=== PATIENT | male | born 1970 | race Caucasian/White ===

== ENCOUNTER 2020-08-13 14:35 | Emergency (ER) | payer BC, SELFPAY ==
--- NOTE | ~2020-08-13 | XR_ITS ---
EXAMINATION:XR_[id number]_CR DATE: 08/13/2020 16:47 INDICATION: Neck pain TECHNIQUE: AP, lateral, and odontoid views of the cervical spine are provided. COMPARISON: None FINDINGS: Alignment is normal. There is reversal of the normal cervical lordosis. The odontoid is int act. No fracture is identified. The vertebral body heights are maintained. There is moderate loss of intervertebral disc space height at C5-6 and C6-7. There is mild facet and uncovertebral joint osteoa rthritis at these levels. Prevertebral soft tissues are normal. IMPRESSION: 1. Mild to moderate cervical spondylosis without acute findings. Reviewed, dictated and finalized at location A. 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
[2020-08-13 15:35] VITALS: BP 163/101; PULSE 83; RESP 17; TEMP 36.6; O2SAT 98
[2020-08-13] MEDS: KETOROLAC 30 MG/ML VIAL (*BKC) IM (17:25)
--- NOTE | 2020-08-13 17:34 | ED.GENADULT ---
HPI - General Adult General Chief complaint: Extremity Injury, Upper Stated complaint: pain in arm,and back Source: patient Mode of arrival: ambulatory Limitations: no limitations History of Present Illness HPI narrative: Hugo is a previously healthy 50M that presented to the ED with pain shooting from his upper medial right shoulder blade to his finger tips. It is worse with activity and better with rest. He also reports numbness in his finger tips and chronic pain in his neck. No weakness. No neck or upper extremity trauma. Related Data Allergies Allergy/AdvReac Type Severity Reaction Status Date / Time No Known Allergies Allergy Verified 08/13/20 15:55 Review of Systems Constitutional: Constitutional: Reports no additional constitutional complaints Eyes: Eyes: Reports no additional eye complaints ENT: Reports system reviewed and no additional complaints, except as documented Cardiovascular: Cardiovascular: Reports no additional cardiovascular complaints Respiratory: Respiratory: Reports no additional respiratory complaints Gastrointestinal: Gastrointestinal: Reports no additional gastrointestinal complaints Genitourinary: Genitourinary: Reports no additional male genitourinary complaints Musculoskeletal: Musculoskeletal: Reports as per HPI Integumentary/Breasts: Skin/Breast: Reports system reviewed and no additional complaints, except as docu Neurologic: Reports system reviewed and no additional complaints, except as documented Psychiatric: Psychiatric: Reports no additional psychiatric complaints Exam Const: General: no acute distress and alert Orientation/consciousness: patient oriented x3 Limitations: No altered mental status HENMT: Head: normal to inspection Eyes: Conjunctivae: conjunctivae normal Pupils: Equal, round and reactive pupils present Neck: Neck: normal visual inspection Chest: Chest palpation & inspection: normal inspection of the chest Resp: Effort & Inspection: normal respiratory effort Auscultation: clear to auscultation bilaterally Cardio: Rate: regular rate Skin: General skin exam: normal color Rashes: no rashes Neuro: General: patient oriented x3 and moves all extremities Extrem: Other: Right shoulder normal to inspection. No TTP. Negative empty can, negative O-briens and crossover, negative impingment, 5/5 strength throughout the upper extremities. Sensation intact in all dermatomes Psych: Appearance: grossly normal Mental Status: mental status grossly normal Course Vital Signs Vital signs: Vital Signs Temperature 97.9 F 08/13/20 15:35 Pulse Rate 83 08/13/20 15:35 Respiratory Rate 17 08/13/20 15:35 Blood Pressure 163/101 H 08/13/20 15:35 Pulse Oximetry 98 02/10/21 15:35 Temperature 97.9 F 08/13/20 15:35 Pulse Rate 83 08/13/20 15:35 Respiratory Rate 17 08/13/20 15:35 Blood Pressure 163/101 H 08/13/20 15:35 Pulse Oximetry 98 08/13/20 15:35 Medical Decision Making Vital Signs Vital Signs: Vital Signs Temperature 97.9 F 08/13/20 15:35 Pulse Rate 83 08/13/20 15:35 Respiratory Rate 17 08/13/20 15:35 Blood Pressure 163/101 H 08/13/20 15:35 Pulse Oximetry 98 08/13/20 15:35 Temperature 97.9 F 08/13/20 15:35 Pulse Rate 83 08/13/20 15:35 Respiratory Rate 17 08/13/20 15:35 Blood Pressure 163/101 H 08/13/20 15:35 Pulse Oximetry 98 08/13/20 15:35 Discharge Plan Discharge Clinical Impression: Cervical radiculopathy Patient Disposition: Home, Self-Care Condition: Stable Instructions: Cervical Radiculopathy (ED) Additional Instructions: Please return to the ED for any new, concerning, or worsening symptoms. Prescriptions: New gabapentin 300 mg capsule 300 mg PO BID Qty: 28 RF: 0 Follow-up/Referrals: UNKNOWN,DOCTOR [Primary Care Provider] -
[2020-08-13 17:56] VITALS: BP 155/98; PULSE 78; RESP 20; O2SAT 98
== END 2020-08-13 17:58 | disposition home or self-care (01) ==
PROVIDERS: Emergency Provider Family Medicine
DX: M54.12 Radiculopathy, cervical region (principal)
CPT/HCPCS: 72040; 96372; 99283; J1885

== ENCOUNTER 2020-12-26 19:37 | Emergency (ER) | payer BC, SELFPAY ==
--- NOTE | 2020-12-26 19:43 | ED.GENADULT ---
HPI - General Adult General Chief complaint: Upper Respiratory Infection Stated complaint: no voice/cough/mucus/fever Source: patient Mode of arrival: ambulatory Limitations: no limitations History of Present Illness HPI narrative: 50 y/o male. PMH includes: Chronic pain Sx. Presents to [facility] today with acute complaints of nasal congestion, intermittent productive cough, 'scratchy throat', as well as feeling feverish at home for the past 72 hours. He reports sub-therapeutic relief with OTC remedies. No chest pain, palpitations, dyspnea. No wheezing. He reports no known ill contacts or Covid 19 exposure. He is without additional acute complaints of illness upon exam. Related Data Home Medications Medication Instructions Recorded Confirmed atorvastatin 12/26/20 Allergies Allergy/AdvReac Type Severity Reaction Status Date / Time No Known Allergies Allergy Verified 08/13/20 15:55 Review of Systems Review of Systems: Narrative: CONSTITUTIONAL: Denies fever, chills, sweats. EYES: Denies visual changes, redness, discharge. ENT: Positive rhinorrhea, congestion, sore throat. No otalgia. CARDIOVASCULAR: Denies chest pain, palpitations, edema. RESPIRATORY: Denies dyspnea, wheezing. Positive cough. GASTROINTESTINAL: Denies abdominal pain, nausea, vomiting, diarrhea. GENITOURINARY: Denies dysuria, hematuria, abnormal discharge SKIN: Denies rash or itching. MUSCULOSKELETAL: Denies acute back pain, joint pain, or myalgia. NEUROLOGIC: Denies numbness, or focal weakness. PSYCHIATRIC: Denies anxiety or depression. All systems reviewed & are unremarkable except as noted in HPI and below Exam Narrative: Exam Narrative: GENERAL: This is a well-nourished, well-developed patient, in no apparent distress. HEAD: normocephalic, atraumatic. EYES: PERRL. Sclera clear/white. Vision is grossly intact. EARS: External ears normal, auditory canals clear and without drainage, TMs normal without perforation. Hearing grossly intact. NOSE: External nose normal. Purulent nasal discharge, nares patent. NECK: Neck supple, non-tender without lymphadenopathy, masses or thyromegaly. CARDIOVASCULAR: Regular rate and rhythm without murmurs, gallops, or rubs. RESPIRATORY: Breath sounds equal bilaterally. Upper airway Rhonchi, cleared with cough. No wheezes or rales. GASTROINTESTINAL: Abdomen soft, non-tender, nondistended. Bowel sounds are active. No hepato-splenomegaly, or palpable masses. No guarding. SKIN: warm, intact with no suspicious lesions or rash, good texture and turgor. NEURO: awake, alert, and oriented to person, place and time. There were no obvious focal neurologic abnormalities. Steady gait Course Vital Signs Vital signs: Vital Signs Temperature 36.9 C 12/26/20 19:46 Pulse Rate 78 12/26/20 19:46 Respiratory Rate 16 12/26/20 19:46 Blood Pressure 148/92 H 12/26/20 19:46 Pulse Oximetry 100 12/26/20 19:46 Temperature 36.9 C 12/26/20 19:46 Pulse Rate 78 12/26/20 19:46 Respiratory Rate 16 12/26/20 19:46 Blood Pressure 148/92 H 12/26/20 19:46 Pulse Oximetry 100 12/26/20 19:46 The patient has been informed that they may have pre-hypertension or Hypertension based on a BP reading in the clinic. It is recommended that the patient call the primary care provider listed on their discharge instructions or a physician of their choice as soon as possible (within 1-2week) to arrange follow up for further evaluation of possible pre-hypertension or hypertension. Medical Decision Making Differential Diagnosis Differential Diagnosis: Differential Diagnosis: Consideration of the following conditions may be warranted for the presenting problem, they are not final diagnoses: upper respiratory infection, otitis media, sinusitis, RSV viral infection, bronchitis, pharyngitis, Streptococcal sore throat, COVID-19, and other. Vital Signs Vital Signs: Vital Signs Temperature 36.9 C 12/26/20 19:46 Pulse
[2020-12-26 19:46] VITALS: BP 148/92; PULSE 78; RESP 16; TEMP 36.9; O2SAT 100
== END 2020-12-26 20:00 | disposition home or self-care (01) ==
PROVIDERS: Emergency Provider Nurse Practitioner Adult Health
DX: J06.9 Acute upper respiratory infection, unspecified (principal)
CPT/HCPCS: 99213; G0463

== ENCOUNTER 2022-01-29 07:33 | Outpatient (CLI) | payer MEDICAID, SELFPAY ==
--- NOTE | ~2022-01-29 | US_ITS ---
US abdomen complete EXAMINATION: US Abdomen Complete INDICATION: Abdominal bloating with pain. PROCEDURE: Realtime High Resolution abdomen ultrasound. COMPARISON: No prior studies for comparison FINDINGS: Gallbladder within normal limits. No gallstones, pericholecystic fluid, gallbladder wall t hickening or biliary dilatation. Common bile duct measures 3 mm. Liver echotexture is increased, consistent with fatty infiltration. Pancreas not well visualized due to bowel gas. Spleen is unremarkeable. Renal echotexture is within normal limits bilaterally without hydronephrosis, contour deforming mass or renal stone. Right kidney measures 9.6 cm. Left kidney heike ures 11.3 cm. There is a tiny left renal cyst measuring 7 mm. Visualized aspects of the aorta and IVC are within normal limits. Portal vein is patent. No sonograph ic Obrien's sign indicated by the technologist. IMPRESSION: 1: Hepatic steatosis. Reviewed, dictated and finalized at location A. IMPRESSION: 1: Hepatic steatosis.
--- NOTE | ~2022-01-29 | XR_ITS ---
EXAMINATION: XR chest 2V 01/29/2022 08:24 INDICATION: Abdominal bloating PROCEDURE: PA and lateral views of the chest COMPARISON: No prior studies for comparison. FINDINGS: The lungs are clear. The cardiomediastinal silhouette is within normal limits. There are no pleural effusions. There is no pneumothorax suspected. IMPRESSION: 1: NO ACUTE CARDIOPULMONARY DISEASE. Reviewed, dictated and finalized at location A.
== END 2022-01-29 07:34 | disposition home or self-care (01) ==
DX: R14.0 Abdominal distension (gaseous) (principal)
CPT/HCPCS: 71046; 76700

== ENCOUNTER 2022-02-24 15:20 | Emergency (ER) | payer BC, SELFPAY ==
--- NOTE | 2022-02-24 15:42 | ED.SKABFB ---
HPI - Skin/Abscess/Foreign Bdy General Chief complaint: Skin/Abscess/Foreign Body Stated complaint: full body rash Time Seen by Provider: 02/24/22 15:24 Source: patient and RN notes reviewed Mode of arrival: ambulatory Limitations: no limitations History of Present Illness complaint: rash (poison jb exposure) Onset (ago): day(s) (2) Location: generalized Severity: moderate Severity scale (1-10): 6 Quality: pruritic Pain Consistency: other (none) Relieving factors: topical medication Exacerbating factors: none Associated symptoms: denies other symptoms Treatments prior to arrival: OTC topical medication and Benadryl Related Data Home Medications Medication Instructions Recorded Confirmed atorvastatin 40 mg tablet 40 mg PO DAILY 12/26/20 02/24/22 Allergies Allergy/AdvReac Type Severity Reaction Status Date / Time No Known Allergies Allergy Verified 02/24/22 15:58 Review of Systems Review of Systems: All systems reviewed & are unremarkable except as noted in HPI and below Constitutional: Constitutional: Reports no additional constitutional complaints Eyes: Eyes: Reports no additional eye complaints ENT: Reports system reviewed and no additional complaints, except as documented Cardiovascular: Cardiovascular: Reports no additional cardiovascular complaints Respiratory: Respiratory: Reports no additional respiratory complaints Gastrointestinal: Gastrointestinal: Reports no additional gastrointestinal complaints Musculoskeletal: Musculoskeletal: Reports no additional musculoskeletal complaints Integumentary/Breasts: Skin/Breast: Reports system reviewed and no additional complaints, except as docu Neurologic: Reports system reviewed and no additional complaints, except as documented Psychiatric: Psychiatric: Reports no additional psychiatric complaints Endocrine: Endocrine: Reports no additional endocrine complaints Hematologic/Lymphatic: Hematologic/Lymphatic: Reports no additional hematologic/lymphatic complaints Allergic/Immunologic: Allergic/Immunologic: Reports no additional allergic/immunologic complaints PMFSH Past Medical History Medical History (Updated 02/28/22 @ 09:24 by Wendi Barron MD) Contact dermatitis due to poison jb Exam Const: General: healthy appearing and no acute distress Nutritional Appearance: well nourished Orientation/consciousness: patient oriented x3 Limitations: no limitations HENMT: Head: normal to inspection Ears: external ears normal, TM's normal bilaterally and EAC's normal General nose exam: Normal external nose present and Normal nares present Face and sinus: normal facial exam and sinuses nontender Mouth: Yes Normal oral and palatal mucosa present and Yes moist mucous membranes Teeth and gingiva: dentition normal Throat: posterior oropharynx normal Eyes: Conjunctivae: conjunctivae normal Pupils: Equal, round and reactive pupils present EOM: EOMs intact bilaterally Neck: Neck: normal visual inspection, no lymphadenopathy and no meningeal signs Chest: Chest palpation & inspection: normal inspection of the chest Resp: Effort & Inspection: normal respiratory effort Auscultation: clear to auscultation bilaterally Cardio: Rate: regular rate Rhythm: regular rhythm GI: GI Palp: Yes Soft to palpation and No Tenderness to palpation present (GI) Auscultation: normal bowel sounds : General: Yes bladder normal to palpation and Yes no CVA tenderness Back/Spine/Pelvis: Back: no CVA tenderness Skin: General skin exam: normal color Rashes: no rashes (mild generalized urticarial skin rash with early crusting and evident excor) Wounds: no wounds Neuro: General: patient oriented x3, moves all extremities, no meningeal signs, no focal motor deficits and CN's II-XI intact bilaterally Cranial nerves: Yes Equal, round and reactive pupils present and Yes Nystagmus not present Speech: normal speech Gait exam (Neuro): Normal gait present Extrem: Ge
[2022-02-24 15:48] VITALS: BP 150/89; PULSE 87; RESP 20; TEMP 36.2; O2SAT 100
[2022-02-24] MEDS: methylPREDNISolone SOD SUCC 125 MG VIAL IM (16:02)
[2022-02-24] MEDS: diphenhydrAMINE HCl CAP 25 MG CAPSULE 50 MG PO (16:03)
[2022-02-24 16:13] VITALS: BP 141/95; PULSE 95; RESP 20; TEMP 36.7; O2SAT 99
--- NOTE | 2022-02-25 11:38 | PC.NURSE ---
prescriptions called to [facility] [place] per patient request.
== END 2022-02-24 16:18 | disposition home or self-care (01) ==
PROVIDERS: Emergency Provider Emergency Medicine
DX: L25.5 Unspecified contact dermatitis due to plants, except food (principal)
CPT/HCPCS: 96372; 99283; A9270; J2930

== ENCOUNTER 2022-08-05 08:54 | Emergency (ER) | payer BC, SELFPAY ==
[2022-08-05 08:55] VITALS: BP 152/94; PULSE 103; RESP 20; TEMP 36.2; O2SAT 99
--- NOTE | 2022-08-05 09:33 | ECG_ITS ---
Measurements Intervals [place] Rate: 102 P: 76 AR: 156 QRS: 70 QRSD: 91 T: 31 QT: 339 QTc: 442 Interpretive Statements SINUS TACHYCARDIA LOW QRS VOLTAGE IN PRECORDIAL LEADS [QRS DEFLECTION < 1.0 mV IN CHEST LEADS] ABNORMAL ECG NO PREVIOUS ECG AVAILABLE FOR COMPARISON Electronically Signed On 08-05-2022 10:14:05 DELIVERY STOCK CLERK by Nico Stern M.D.
[2022-08-05 09:34] LABS: Add Urine Microscopic? NO; Appearance Urine Clear (Clear); Bilirubin Urine Negative (Negative); Blood Urine Negative (Negative); Color Urine Light Yellow (Yellow); Glucose Urine UA Negative (Negative); Ketones Urine Negative (Negative); Leukocyte Esterase Ur Negative LEU/UL (Negative); Nitrate Urine Negative (Negative); Protein Urine Negative (Negative); Specific Grav Ur >= 1.030 (1.010-1.020); Urobilinogen Urine 0.2 mg/dL (0.2-1.0)
[2022-08-05] MEDS: ALPRAZolam (*CRX) 0.5 MG TABLET PO (09:36)
[2022-08-05 09:42] LABS: Basophils Absolute Auto 0.07 K/mm3 (0.00-0.10); Basophils Percent Auto 1.1 % (0.0-1.0); Eosinophils Absolute Auto 0.38 K/mm3 (0.02-0.50); Eosinophils Percent Auto 5.7 % (1.0-6.0); Hematocrit 45.3 % (40.0-54.0); Hemoglobin 15.5 g/dL (14.0-18.0); Immature Granulocyte Absolute 0.02 K/mm3 (0.00-0.00); Immature Granulocyte Percent A 0.3 % (0.0-0.0); Lymphocytes Absolute Auto 1.77 K/mm3 (1.10-4.50); Lymphocytes Percent Auto 26.7 % (18.0-42.0); Mean Corpuscular HGB Conc 34.2 g/dL (32.0-36.0); Mean Corpuscular Hemoglobin 28.7 pg (27.0-31.0); Mean Corpuscular Volume 83.7 fL (78.0-102.0); Mean Platelet Volume 8.4 fl (8.7-11.0); Monocytes Absolute Auto 0.37 K/mm3 (0.10-0.90); Monocytes Percent Auto 5.6 % (2.0-11.0); Neutrophils Percent Auto 60.6 % (50.0-70.0); Platelet Count Result 371 K/mm3 (150-420); Red Blood Count 5.41 M/mm3 (4.70-6.10); Red Cell Distribution Width 13.2 % (11.6-14.4); White Blood Count 6.6 K/mm3 (4.8-10.8)
[2022-08-05 09:47] LABS: Amphetamine Screen Urine Positive (Negative); Barbiturate Screen Urine Negative (Negative); Benzodiazepines Screen Urine Negative (Negative); Cannabinoid Screen Urine Negative (Negative); Cocaine Screen Urine Negative (Negative); Methadone Screen Urine Negative (Negative); Opiate Screen Urine Negative (Negative); Phencyclidine Screen Urine Negative (Negative)
[2022-08-05 10:06] LABS: Alanine Aminotransferase 80 U/L (16-63); Albumin Level 3.7 g/dL (3.4-5.0); Alkaline Phosphatase 102 U/L (46-116); Anion Gap 12 mmol/L (8-16); Aspartate Amino Transferase 39 U/L (15-37); Bilirubin,Total 0.3 mg/dL (0.00-1.00); Blood Urea Nitrogen 16 mg/dL (7-18); Calcium 8.3 mg/dL (8.5-10.1); Carbon Dioxide 23 mmol/L (21-32); Chloride 101 mmol/L (98-108); Estimated CRCL calculation 69 ml/min; Estimated Glomerular Filt Rate > 60; Glucose 211 mg/dL (70-99); Osmolality Calculated 289 mOsm/kg (285-295); Potassium 3.8 mmol/L (3.5-5.1); Sodium 136 mmol/L (136-145); Thyroid Stimulating Hormone 1.37 uIU/mL (0.36-3.74); Total Protein 7.7 g/dL (6.4-8.2)
[2022-08-05 10:07] LABS: Ethanol < 3 mg/dL (0-6)
[2022-08-05 10:23] LABS: SARS-CoV-2 RNA PCR Negative (Negative)
[2022-08-05 10:45] VITALS: BP 131/89; PULSE 94; RESP 16; TEMP 36.4; O2SAT 100
--- NOTE | 2022-08-05 11:09 | ED.PSYCH ---
HPI - Psych General Chief Complaint: Psychiatric Symptoms Stated Complaint: pysch Time Seen by Provider: 08/05/22 09:12 Source: patient Mode of arrival: ambulatory Limitations: no limitations History of Present Illness HPI Narrative: this is a 52-year-old gentleman with a history of anxiety, panic disorder depression has been off his medication and states that the right combination of medication has not been found for him currently has been having anxiety and panic attacks for the last couple of weeks fulminating and to this episode were he says he would be better off if he was not around otherwise he does not have a clear plan of suicide. Has been self medicating with illicit drugs and we currently feels panicky with some no shortness of breath no chest pain no fever chills no abdominal pain. MD complaint: suicidal ideation and feels depressed Onset (ago): week(s) Duration: constant Context: recent drug abuse Associated psychiatric symptoms: depression, suicidal ideation and racing thoughts Related Data Home Medications Medication Instructions Recorded Confirmed No Home Medications 08/05/22 08/05/22 Allergies Allergy/AdvReac Type Severity Reaction Status Date / Time No Known Allergies Allergy Verified 08/05/22 09:40 Review of Systems Review of Systems: All systems reviewed & are unremarkable except as noted in HPI and below PMFSH Past Medical History Medical History Contact dermatitis due to poison jb Social History Social History Substance use type: marijuana, crack/cocaine and methamphetamine Exam Const: General: healthy appearing Nutritional Appearance: well nourished Limitations: no limitations HENMT: Head: normal to inspection Face/Nose/Sinus: Normal external nose present Face and sinus: normal facial exam Mouth: Yes Normal oral and palatal mucosa present Teeth and gingiva: dentition normal Eyes: Conjunctivae: conjunctivae normal Pupils: Equal, round and reactive pupils present EOM: EOMs intact bilaterally Neck: Neck: normal visual inspection, no lymphadenopathy and no meningeal signs Chest: Chest palpation & inspection: normal inspection of the chest Resp: Effort & Inspection: normal respiratory effort Auscultation: clear to auscultation bilaterally Cardio: Rate: regular rate Rhythm: regular rhythm GI: GI Palp: Yes Soft to palpation Auscultation: normal bowel sounds : General: Yes bladder normal to palpation Back/Spine/Pelvis: Back: no CVA tenderness Skin: General skin exam: normal color Rashes: no rashes Wounds: no wounds Neuro: General: patient oriented x3, moves all extremities, no meningeal signs and no focal motor deficits Psych: Affect: Sad affect present Other: Anxious Course Course Emergency Course: patient has received 0.5mg PO Xanax and has improved and his disposition with decrease anxiety and labs reviewed and mental health to evaluate. mental health evaluation and is safe for discharge and has plan for follow-up in the [facility] at [facility]. Vital Signs Vital signs: Vital Signs Temperature 36.2 C L 08/05/22 08:55 Pulse Rate 103 H 08/05/22 08:55 Respiratory Rate 20 08/05/22 08:55 Blood Pressure 152/94 H 08/05/22 08:55 Pulse Oximetry 99 08/05/22 08:55 Oxygen Delivery Room Air 08/05/22 08:55 Temperature 36.2 C L 08/05/22 08:55 Pulse Rate 103 H 08/05/22 08:55 Respiratory Rate 20 08/05/22 08:55 Blood Pressure 152/94 H 08/05/22 08:55 Pulse Oximetry 99 08/05/22 08:55 Oxygen Delivery Room Air 08/05/22 08:55 MDM - Psych Lab Data 08/05/22 09:34 08/05/22 09:34 Labs: Lab Results 08/05/22 08/05/22 08/05/22 Range/Units 09:24 09:24 09:34 WBC (4.8-10.8) K/mm3 RBC (4.70-6.10) M/mm3 Hgb (14.0-18.0) g/dL Hct (40.0-54.0) % MCV (78.0-102
[2022-08-05 13:45] VITALS: BP 125/88; PULSE 90; RESP 16; TEMP 36.6; O2SAT 97
== END 2022-08-05 14:20 | disposition home or self-care (01) ==
PROVIDERS: Emergency Provider Emergency Medicine
DX: F41.8 Other specified anxiety disorders (principal); Z20.822 Contact with and (suspected) exposure to COVID-19
CPT/HCPCS: 36415; 80053; 80307; 81003; 84443; 85025; 93005; 99284; A9270; U0003; U0005

== ENCOUNTER 2022-08-12 18:37 | Emergency (ER) | payer BC, SELFPAY ==
[2022-08-12 19:12] VITALS: BP 157/107; PULSE 98; RESP 16; TEMP 36.5; O2SAT 98
--- NOTE | 2022-08-12 20:00 | ED.GENADULT ---
HPI - General Adult General Chief complaint: Psychiatric Symptoms Stated complaint: depression Time Seen by Provider: 08/12/22 18:42 Source: patient Mode of arrival: ambulatory Limitations: no limitations History of Present Illness HPI narrative: This is a 52-year-old gentleman with history of depression was seen last week in the emergency department and was evaluated by mental Health/ [facility] and had an appointment but the mental health clinic failed to set him up with an appointment with within a timely manner, the patient continues to have sadness and depression is currently not taking any medication and is here to to expedite placement and schedule an appointment for evaluation and treatment for his depression. Otherwise the patient is not suicidal not homicidal appears comfortable but is extremely depressed. Onset (ago): month(s) Severity: moderate Related Data Allergies Allergy/AdvReac Type Severity Reaction Status Date / Time No Known Allergies Allergy Verified 08/12/22 19:16 Review of Systems Review of Systems: All systems reviewed & are unremarkable except as noted in HPI and below PMFSH Past Medical History Medical History Contact dermatitis due to poison jb Social History Social History Substance use type: marijuana, crack/cocaine and methamphetamine Exam Const: General: healthy appearing and no acute distress Nutritional Appearance: well nourished Limitations: no limitations HENMT: Head: normal to inspection Ears: external ears normal Face and sinus: normal facial exam Mouth: Yes Normal oral and palatal mucosa present Eyes: Conjunctivae: conjunctivae normal Pupils: Equal, round and reactive pupils present EOM: EOMs intact bilaterally Neck: Neck: normal visual inspection, no lymphadenopathy and no meningeal signs Chest: Chest palpation & inspection: normal inspection of the chest Resp: Effort & Inspection: normal respiratory effort Auscultation: clear to auscultation bilaterally Cardio: Rate: regular rate Rhythm: regular rhythm GI: GI Palp: Yes Soft to palpation Auscultation: normal bowel sounds Back/Spine/Pelvis: Back: no CVA tenderness Skin: General skin exam: normal color Rashes: no rashes Wounds: no wounds Neuro: General: patient oriented x3, moves all extremities, no meningeal signs and no focal motor deficits Extrem: General: normal to inspection and no clubbing, cyanosis or edema Psych: Affect: Sad affect present Course Course Emergency Course: Had blood work performed last week and currently does not need any blood work and mental health to evaluate Vital Signs Vital signs: Vital Signs Temperature 36.5 C 08/12/22 19:12 Pulse Rate 98 08/12/22 19:12 Respiratory Rate 16 08/12/22 19:12 Blood Pressure 157/107 H 08/12/22 19:12 Pulse Oximetry 98 08/12/22 19:12 Oxygen Delivery Room Air 08/12/22 19:12 Temperature 36.5 C 08/12/22 19:12 Pulse Rate 98 08/12/22 19:12 Respiratory Rate 16 08/12/22 19:12 Blood Pressure 157/107 H 08/12/22 19:12 Pulse Oximetry 98 08/12/22 19:12 Oxygen Delivery Room Air 08/12/22 19:12 Medical Decision Making Vital Signs Vital Signs: Vital Signs Temperature 36.5 C 08/12/22 19:12 Pulse Rate 98 08/12/22 19:12 Respiratory Rate 16 08/12/22 19:12 Blood Pressure 157/107 H 08/12/22 19:12 Pulse Oximetry 98 08/12/22 19:12 Oxygen Delivery Room Air 08/12/22 19:12 Temperature 36.5 C 08/12/22 19:12 Pulse Rate 98 08/12/22 19:12 Respiratory Rate 16 08/12/22 19:12 Blood Pressure 157/107 H 08/12/22 19:12 Pulse Oximetry 98 08/12/22 19:12 Oxygen Delivery Room Air 08/12/22 19:12 Critical Care Time Critical Care Time Critical Care Time: No Discharge Plan Discharge Instructions: Depression (ED) Additional Instructions: advised follow-up with
[2022-08-12 23:35] VITALS: BP 110/88; PULSE 69; RESP 20; TEMP 36.7; O2SAT 99
== END 2022-08-12 23:37 | disposition home or self-care (01) ==
PROVIDERS: Emergency Provider Emergency Medicine
DX: F32.A Depression, unspecified (principal)
CPT/HCPCS: 99283

== ENCOUNTER 2023-04-27 11:43 | Emergency (ER) | payer BC, SELFPAY ==
--- NOTE | ~2023-04-27 | XR_ITS ---
Portable chest x-ray Comparison: 01/29/2022 Clinical History: Shortness of breath Findings: Lungs are clear, without focal consolidation or pleural effusion. Cardiomediastinal silho uette is stable. Bones and soft tissues are unremarkable. Impression: Normal chest. Reviewed, dictated and finalized at location . Impression: Normal chest.
[2023-04-27 11:43] VITALS: BP 135/89; PULSE 80; RESP 16; TEMP 36.2; O2SAT 98
--- NOTE | 2023-04-27 11:46 | ED.URI ---
HPI - URI/Sore Throat General Chief Complaint: Upper Respiratory Infection Stated Complaint: cough and congestion Time Seen by Provider: 04/27/23 11:45 Source: patient Mode of arrival: ambulatory Limitations: no limitations History of Present Illness HPI Narrative: 52-year-old male nonsmoker with a prior history of shortness of breath requiring bronchodilator treatment presents to the ER with -- chest congestion. -- Shortness of breath with wheezing -- nonproductive cough which wakes him up from his sleep and comes on while talking and movement. No fever or chills. No chest pain MD elicited complaint: cough Pertinent past history: asthma Onset (ago): day(s) Consistency: intermittent Severity: moderate Able to tolerate fluids by mouth: Yes Exacerbating factors: exertion and deep breaths Relieving factors: nothing Associated symptoms: denies other symptoms, cough and shortness of breath Treatments prior to arrival: none Related Data Allergies Allergy/AdvReac Type Severity Reaction Status Date / Time No Known Allergies Allergy Verified 04/27/23 11:47 Review of Systems Review of Systems: All systems reviewed & are unremarkable except as noted in HPI and below Constitutional: Constitutional: Reports as per HPI and Reports no additional constitutional complaints Eyes: Eyes: Reports as per HPI and Reports no additional eye complaints ENT: Reports system reviewed and no additional complaints, except as documented and Reports as per HPI Cardiovascular: Cardiovascular: Reports as per HPI and Reports no additional cardiovascular complaints Respiratory: Respiratory: Reports chest congestion, Reports cough, Reports dyspnea and Reports wheezing Gastrointestinal: Gastrointestinal: Reports as per HPI and Reports no additional gastrointestinal complaints Genitourinary: Genitourinary: Reports no additional male genitourinary complaints Musculoskeletal: Musculoskeletal: Reports no additional musculoskeletal complaints and Reports as per HPI Integumentary/Breasts: Skin/Breast: Reports system reviewed and no additional complaints, except as docu and Reports as per HPI Neurologic: Reports system reviewed and no additional complaints, except as documented and Reports as per HPI Psychiatric: Psychiatric: Reports no additional psychiatric complaints and Reports as per HPI Endocrine: Endocrine: Reports no additional endocrine complaints and Reports as per HPI Hematologic/Lymphatic: Hematologic/Lymphatic: Reports no additional hematologic/lymphatic complaints and Reports as per HPI Allergic/Immunologic: Allergic/Immunologic: Reports no additional allergic/immunologic complaints and Reports as per HPI [facility] Past Medical History Medical History (Updated 04/27/23 @ 13:04 by Trev Garcia MD) Asthma Contact dermatitis due to poison jb Social History Social History Substance use type: marijuana, crack/cocaine and methamphetamine Exam Const: General: ill appearing Nutritional Appearance: well nourished Orientation/consciousness: patient oriented x3 HENMT: Head: normal to inspection Ears: external ears normal Face/Nose/Sinus: Normal external nose present Face and sinus: normal facial exam Mouth: Yes Normal oral and palatal mucosa present Throat: posterior oropharynx normal Eyes: Conjunctivae: conjunctivae normal Pupils: Equal, round and reactive pupils present EOM: EOMs intact bilaterally Direct Ophthalmoscopy: no photophobia Neck: Neck: normal visual inspection, no lymphadenopathy and no meningeal signs Chest: Chest palpation & inspection: normal inspection of the chest Resp: Effort & Inspection: uses accessory muscles Auscultation: rhonchi and wheezes Cardio: Rate: regular rate Rhythm: regular rhythm GI: GI Palp: Yes Soft to palpation Auscultation: normal bowel sounds : General: Yes no CVA tenderness Back/Spine/Pelvis: Back: no CVA tendern
[2023-04-27] MEDS: IPRATROPIUM 0.5 MG/ALBUTEROL SULFATE 2.5 MG AMPUL.NEB 3 ML INHALATION (12:08)
[2023-04-27 12:10] VITALS: PULSE 82; RESP 16; O2SAT 94
[2023-04-27 12:17] VITALS: PULSE 84; RESP 18; O2SAT 95
[2023-04-27] MEDS: methylPREDNISolone SOD SUCC 125 MG VIAL IM (12:21)
[2023-04-27 12:39] LABS: Influenza A QL RT-PCR Negative (Negative); Influenza B QL RT-PCR Negative (Negative); SARS-CoV-2 RNA PCR Negative (Negative)
[2023-04-27 12:55] LABS: RSV RNA, RT-PCR Negative (Negative)
[2023-04-27 13:33] VITALS: BP 131/78; PULSE 89; RESP 16; O2SAT 96
== END 2023-04-27 13:36 | disposition home or self-care (01) ==
PROVIDERS: Emergency Provider Internal Medicine Critical Care Medicine
DX: J45.41 Moderate persistent asthma with (acute) exacerbation (principal); Z20.822 Contact with and (suspected) exposure to COVID-19
CPT/HCPCS: 71045; 87637; 94640; 96372; 99283; J2930

== ENCOUNTER 2024-02-22 15:53 | Observation (INO) | payer BC, SELFPAY ==
--- NOTE | ~2024-02-22 | CT_ITS ---
EXAMINATION: CT abdomen pelvis w con DATE: 02/22/2024 17:45 INDICATION: Diffuse abdominal pain. Umbilical hernia. Nausea, vomiting and diarrhea. TECHNIQUE: Computed tomography (CT) of the abdomen and pelvis was performed with 100 mL Omnipaque-350 intravenous contrast. Automated exposure control and iterative reconstruction technique were employe d. The dose-length product was 967.80 mGy-cm. COMPARISON: None FINDINGS: Small calcified and left lower lobe nodule along with calcified left hilar and mediastinal lymph node s and multiple splenic lesions all consistent with old granulomatous disease. Heart size is normal. A ortic valve calcification. No pericardial or pleural effusion. Diffuse hepatic steatosis with focal s paring along the gallbladder fossa. Gallbladder, pancreas and bilateral adrenal glands are normal. Th ere are bilateral renal cysts the largest on the left measuring up to 1.9 cm. There is mild to modera te colonic diverticulosis with a sigmoid predominance. There is no adjacent inflammatory change to rooney ggest diverticulitis. There is fluid throughout multiple loops of nondilated small bowel and in the p roximal colon consistent with nonspecific diarrhea potentially related to enteritis. No bowel obstruc tion. Normal appendix. Bladder is normal. No free intraperitoneal gas or fluid. No pathologically enl arged abdominal or pelvic lymphadenopathy. Small fat-containing umbilical hernia. Moderate to severe lower lumbar facet osteoarthritis. IMPRESSION: 1. Fluid throughout the small bowel and proximal colon consistent with nonspecific diarrhea potential ly related to gastroenteritis. No bowel obstruction. 2. Diffuse hepatic steatosis. 3. Small fat-containing umbilical hernia. Reviewed, dictated and finalized at location A. IMPRESSION: 1. Fluid throughout the small bowel and proximal colon consistent with nonspeci fic diarrhea potentially related to gastroenteritis. No bowel obstruction. 2. Diffuse hepatic steatosis. 3. Small fat-containing umbilical hernia.
[2024-02-22 15:55] VITALS: BP 140/91; PULSE 115; RESP 22; TEMP 36.4; O2SAT 98
--- NOTE | 2024-02-22 16:02 | ED.ABDPAIN ---
HPI - Abdominal Pain General Chief Complaint: Abdominal Pain Stated Complaint: throwing up History of Present Illness HPI narrative: 53-year-old male with a history of allergic bronchitis presents to the ED with a 1 day history of -- diffuse abdominal pain. The pain is worse on deep breathing or coughing. tenderness on palpation -- nausea with multiple episodes of vomiting. no hematemesis. -- Multiple episodes of watery diarrhea. -- Umbilical hernia No fever or chills. MD elicited complaint: abdominal pain Onset (ago): day(s) ( 1 day) Pain Consistency: constant Location: diffuse Severity: severe Quality: cramping Radiation: none Migration to: no migration Exacerbating factors: nothing Relieving factors: nothing Associated symptoms: nausea, vomiting, diarrhea and chills Related Data Allergies Allergy/AdvReac Type Severity Reaction Status Date / Time No Known Allergies Allergy Verified 02/22/24 16:00 Review of Systems Review of Systems: All systems reviewed & are unremarkable except as noted in HPI and below Constitutional: Constitutional: Reports as per HPI and Reports no additional constitutional complaints Eyes: Eyes: Reports as per HPI and Reports no additional eye complaints ENT: Reports system reviewed and no additional complaints, except as documented and Reports as per HPI Cardiovascular: Cardiovascular: Reports as per HPI and Reports no additional cardiovascular complaints Respiratory: Respiratory: Reports as per HPI and Reports no additional respiratory complaints Gastrointestinal: Gastrointestinal: Reports as per HPI, Reports abdominal pain, Reports diarrhea, Reports nausea and Reports vomiting Comments: diffuse abdominal pain with vomiting and diarrhea Genitourinary: Genitourinary: Reports no additional male genitourinary complaints and Reports as per HPI Musculoskeletal: Musculoskeletal: Reports no additional musculoskeletal complaints and Reports as per HPI Integumentary/Breasts: Skin/Breast: Reports system reviewed and no additional complaints, except as docu and Reports as per HPI Neurologic: Reports system reviewed and no additional complaints, except as documented and Reports as per HPI Psychiatric: Psychiatric: Reports no additional psychiatric complaints and Reports as per HPI Endocrine: Endocrine: Reports no additional endocrine complaints and Reports as per HPI Hematologic/Lymphatic: Hematologic/Lymphatic: Reports no additional hematologic/lymphatic complaints and Reports as per HPI Allergic/Immunologic: Allergic/Immunologic: Reports no additional allergic/immunologic complaints and Reports as per HPI [facility] Past Medical History Medical History Asthma Contact dermatitis due to poison jb Social History Social History Substance use type: marijuana, crack/cocaine and methamphetamine Exam Narrative: afebrile. Oxygen saturation of 98% on room air Const: General: ill appearing Nutritional Appearance: obese Orientation/consciousness: patient oriented x3 Limitations: no limitations HENMT: Head: normal to inspection Ears: external ears normal Face/Nose/Sinus: Normal external nose present Face and sinus: normal facial exam Mouth: Yes Normal oral and palatal mucosa present Throat: posterior oropharynx normal Eyes: Conjunctivae: conjunctivae normal Pupils: Equal, round and reactive pupils present EOM: EOMs intact bilaterally Direct Ophthalmoscopy: no photophobia Neck: Neck: normal visual inspection, no lymphadenopathy and no meningeal signs Chest: Chest palpation & inspection: normal inspection of the chest Resp: Effort & Inspection: normal respiratory effort Auscultation: clear to auscultation bilaterally Cardio: Rate: regular rate Rhythm: regular rhythm GI: GI Palp: Yes Tenderness to palpation present (GI) and Yes Guarding due to palpation pr
--- NOTE | 2024-02-22 16:20 | PC.NURSE ---
Pt resting comfortably in his stretcher. Family at bedside.
[2024-02-22] MEDS: LACTATED RINGERS 1,000 ML 999 ML IV CONT ×2 (16:24→19:18)
[2024-02-22] MEDS: MORPHINE SULFATE (*CRX) 2 MG/ML INJ IV PUSH ×2 (16:26→18:13)
[2024-02-22] MEDS: PROCHLORPERAZINE EDISYLATE 10 MG/2 ML VIAL IV PUSH (16:26)
[2024-02-22 16:54] LABS: Hematocrit 50.4 % (40.0-54.0); Hemoglobin 17.4 g/dL (14.0-18.0); Mean Corpuscular HGB Conc 34.5 g/dL (32-36); Mean Corpuscular Hemoglobin 28.3 pg (27.0-31.0); Mean Corpuscular Volume 82.1 fL (78.0-102.0); Mean Platelet Volume 8.5 fl (8.7-11.0); Platelet Count Result 443 K/mm3 (150-420); Red Blood Count 6.14 M/mm3 (4.70-6.10); Red Cell Distribution Width 13.2 % (11.6-14.4)
[2024-02-22 16:57] LABS: Add Urine Microscopic? YES; Appearance Urine Clear (Clear); Bilirubin Urine Negative (Negative); Blood Urine 3+ (Negative); Color Urine Yellow (Yellow); Glucose Urine UA Negative (Negative); Ketones Urine Negative (Negative); Leukocyte Esterase Ur Negative LEU/UL (Negative); Nitrate Urine Negative (Negative); Protein Urine 2+ (Negative); Specific Grav Ur >= 1.030 (1.010-1.020); Urobilinogen Urine 0.2 mg/dL (0.2-1.0)
--- NOTE | 2024-02-22 17:00 | PC.NURSE ---
Pt resting comfortably. Call light w/in reach. Family at bedside.
[2024-02-22 17:12] LABS: Alanine Aminotransferase 70 U/L (16-63); Alkaline Phosphatase 99 U/L (46-116); Anion Gap 13 mmol/L (4-12); Aspartate Amino Transferase 30 U/L (15-37); Bilirubin,Total 0.4 mg/dL (0.00-1.00); Blood Urea Nitrogen 15 mg/dL (7-18); Calcium 9.4 mg/dL (8.5-10.1); Carbon Dioxide 24 mmol/L (21-32); Chloride 97 mmol/L (98-108); Estimated CRCL calculation 66 ml/min; Estimated Glomerular Filt Rate > 60; Glucose 157 mg/dL (70-99); Lipase 74 U/L (16-77); Osmolality Calculated 281 mOsm/kg (285-295); Potassium 4.5 mmol/L (3.5-5.1); Sodium 134 mmol/L (136-145); Total Protein 7.9 g/dL (6.4-8.2)
[2024-02-22 17:16] LABS: Lactic Acid Reflex 3.9 mmol/L (0.4-2.0)
[2024-02-22 17:17] LABS: Troponin I < 4.0 ng/L (0.00-60.4)
[2024-02-22 17:19] LABS: White Blood Count 25.3 K/mm3 (4.8-10.8)
[2024-02-22 17:20] LABS: Band Neutrophils Percent 1 % (0-6); Eosinophils Absolute Manual 0.25 K/mm3 (0.02-0.50); Eosinophils Percent Manual 1 % (1-6); Lymphocytes Absolute Manual 1.51 K/mm3 (1.1-4.5); Lymphocytes Percent Manual 6 % (18-44); Monocytes Percent Manual 0 % (3-9); Neutrophils Absolute Manual 23.52 K/mm3 (1.3-6.7); Neutrophils Percent Manual 92 % (46-73); Total Cells Counted 100
[2024-02-22 17:21] LABS: Platelet Estimate Slightly Increased (Adequate); Spherocytes 1+
--- NOTE | 2024-02-22 17:28 | PC.NURSE ---
Pt reports pain has improved to a 4. Pt gone to CT.
[2024-02-22 17:43] LABS: Squamous Epithelial Cell Urine Rare /hpf (Few); WBC Urine 0-3 /hpf (0-3)
[2024-02-22 17:43] LABS: INR 0.9; Partial Thromboplastin Time 26.6 Sec (23.9-30.70); Prothrombin Time 10.3 Seconds (9.50-12.1)
[2024-02-22 17:44] LABS: Amorphous Sediment Urine Moderate; Bacteria Urine 1+ /hpf; Mucus Urine Moderate /lpf
[2024-02-22] MEDS: SODIUM CHLORIDE 0.9% IV 1,000 ML 999 ML IV CONT (17:57)
[2024-02-22 17:58] LABS: Amphetamine Screen Urine Positive (Negative); Barbiturate Screen Urine Negative (Negative); Benzodiazepines Screen Urine Negative (Negative); Cannabinoid Screen Urine Negative (Negative); Cocaine Screen Urine Negative (Negative); Methadone Screen Urine Negative (Negative); Opiate Screen Urine Negative (Negative); Phencyclidine Screen Urine Negative (Negative)
--- NOTE | 2024-02-22 18:32 | PC.NURSE ---
Informed pt that we need a stool sample. He attempted but was unsuccessful. Will try again later.
--- NOTE | 2024-02-22 19:00 | PC.NURSE ---
assumed care. report received from Ban ARIAS.
--- NOTE | 2024-02-22 19:07 | PC.NURSE ---
Reminded pt about needing stool sample. He is resting comfortably at this time. Family at bedside.
--- NOTE | 2024-02-22 19:12 | PC.NURSE ---
patient resting on stretcher with family at his side. states he is unable to give a stool sample at this time.
[2024-02-22 19:51] LABS: Reflex Lactic Acid Yes or No Add Lactic
--- NOTE | 2024-02-22 20:05 | PC.NURSE ---
patient is resting on stretcher. denies any needs at this time. family at his side. call light in reach. patient has ambulated to the bathroom and back to room without difficulty. unable to give stool sample at this time
[2024-02-22 20:41] LABS: Lactic Acid 2.2 mmol/L (0.4-2.0)
[2024-02-22] MEDS: metroNIDAZOLE 500 MG/ISO 100ML 500 MG/100 ML BAG 100 MG IVPB (20:53)
--- NOTE | 2024-02-22 20:58 | PC.NURSE ---
notified floor of admission. plan is to go to room 210. registration also notified
[2024-02-22 21:26] VITALS: BP 138/88; PULSE 100; RESP 20; O2SAT 97
[2024-02-22 21:33] VITALS: BMI 35.9
--- NOTE | 2024-02-22 22:00 | ADMGEN ---
This patient, Hugo Michele, was admitted to 2nd Floor Room 210-1. Patient/family oriented to hospital policies and general routines including ID bracelet, bed and alarms, visiting hours, pain management, procedures, bathroom and other care routines, personal items, smoking policy, room service/diet, and visiting hours. Pt denies using any illicit drugs or having any on his person. Pt is in tshirt, shorts, flip flops. Information on how to activate the Rapid Response Team has been discussed. Patient/Family are encouraged to report perceived risks to care and to ask questions if they do not understand what they are told or what they should do.
[2024-02-22] MEDS: levoFLOXacin 500 MG/D5W 100 ML 500 MG/100 ML BAG 100 MG IVPB (22:01)
--- NOTE | 2024-02-22 22:45 | PC.NURSE ---
pt asks if he poops can he go home, pt advised to stay the night for antibiotics/fluids and reminded that he was admitted for high white count and need for rehydration. Pt agrees to stay until the results of c diff are received
--- NOTE | 2024-02-22 23:03 | PC.NURSE ---
stool sample taken down to lab for cdiff
[2024-02-22 23:49] LABS: Toxigenic C. Diff NEGATIVE (NEGATIVE)
[2024-02-22] MEDS: LACTATED RINGERS 1,000 ML 100 ML IV CONT (23:50)
[2024-02-23] VITALS: BP 128/90; PULSE 93; RESP 18; TEMP 36.4; O2SAT 96
--- NOTE | 2024-02-23 00:05 | PC.NURSE ---
Negative C-diff results reported to Dr. Garcia. No new orders at this time.
[2024-02-23 05:13] LABS: Basophils Absolute Auto 0.06 K/mm3 (0.00-0.10); Basophils Percent Auto 0.4 % (0.0-1.0); Eosinophils Absolute Auto 0.46 K/mm3 (0.02-0.50); Eosinophils Percent Auto 2.9 % (1.0-6.0); Hematocrit 43.8 % (40.0-54.0); Hemoglobin 14.7 g/dL (14.0-18.0); Immature Granulocyte Absolute 0.05 K/mm3 (0.00-0.00); Immature Granulocyte Percent A 0.3 % (0.0-0.0); Lymphocytes Absolute Auto 2.11 K/mm3 (1.10-4.50); Lymphocytes Percent Auto 13.2 % (18.0-42.0); Mean Corpuscular HGB Conc 33.6 g/dL (32-36); Mean Corpuscular Hemoglobin 27.8 pg (27.0-31.0); Mean Corpuscular Volume 82.8 fL (78.0-102.0); Mean Platelet Volume 8.2 fl (8.7-11.0); Monocytes Absolute Auto 0.91 K/mm3 (0.10-0.90); Monocytes Percent Auto 5.7 % (2.0-11.0); Neutrophils Absolute Auto 12.42 K/mm3 (1.70-7.20); Neutrophils Percent Auto 77.5 % (50.0-70.0); Platelet Count Result 341 K/mm3 (150-420); Red Blood Count 5.29 M/mm3 (4.70-6.10); Red Cell Distribution Width 13.3 % (11.6-14.4)
--- NOTE | 2024-02-23 05:25 | PC.NURSE ---
Pt up to the desk and states he has to go home to get his son to school at 0730. Explained that he still has another antibiotic due this AM. Pt insists that he cant stay. Dr. Garcia notified of the situation.
--- NOTE | 2024-02-23 05:32 | PC.NURSE ---
Dr. Garcia here to see the pt. Pt was examined and Dr. Garcia explained why pt needed to stay and continue his treatment. Pt was adament that he had to go home to take care of family matters. Pt was given his options and he chose to go AMA. Pt signed AMA paperwork and IV site was removed.
[2024-02-23 05:38] LABS: Anion Gap 9 mmol/L (4-12); Blood Urea Nitrogen 11 mg/dL (7-18); Calcium 8.2 mg/dL (8.5-10.1); Carbon Dioxide 28 mmol/L (21-32); Chloride 97 mmol/L (98-108); Estimated CRCL calculation 82 ml/min; Estimated Glomerular Filt Rate > 60; Glucose 126 mg/dL (70-99); Osmolality Calculated 279 mOsm/kg (285-295); Sodium 134 mmol/L (136-145)
--- NOTE | 2024-02-23 06:00 | PC.NURSE ---
Pt was given a written script for PO antibiotics. Script given to pt and he discharged home.
--- NOTE | 2024-02-27 12:46 | PC.NURSE ---
Discharge call back attempted, no answer
--- NOTE | 2024-02-28 11:45 | PC.NURSE ---
Discharge call back attempted, no answer
== END 2024-02-23 06:00 | disposition left against medical advice (07) ==
LOC: CHSED 21:02 → CHS2ND 21:10
PROVIDERS: Admitting Provider Internal Medicine; Emergency Provider Internal Medicine Critical Care Medicine; Visit Provider Internal Medicine
DX: A09 Infectious gastroenteritis and colitis, unspecified (principal); K42.9 Umbilical hernia without obstruction or gangrene; J45.909 Unspecified asthma, uncomplicated
CPT/HCPCS: 36415; 74177; 80048; 80053; 80307; 81001; 83605; 83690; 84484; 85025; 85610; 85730; 87040; 87493; 96361; 96367; 96374; 96375; 96376; 99285; G0378; G0379; J0780; J1836; J1956; J2270; J7030; J7120; Q9967